=== PATIENT | male | born 1975 | race Caucasian/White ===

== ENCOUNTER → 2018-08-04 | Day surgery (SDC) | payer MEDICARE, MEDICAID ==
[~2018-08-04] MED LIST: ADASUVE10 MG PO; ALL DAY ALLERGY10 M3 PO; APAP650 PO; BOUDREAUXS10 GM TOP; CARBAMAZEPINE200 M5 PO; CHLORPROMAZINE100 MG PO; CHLORPROMAZINE50 M2 PO; COLACE100 MG PO; CONSTULOSE10 GM/152 PO; DULCOLAX5 MG PO; HYDROCORTISONE30 G9 TOP; IBU600 MG PO; IPRAT-ALBUT 0.5-3 ML INH; LINZESS145 MCG PO; MELATONIN3 MG PO; METFORMIN HCL500 MG PO; MILK OF MA400 MG/5 M PO; MIRALAX17 GM PO; MULTIPLE VITAM1 EAC2 PO; MUPIROCIN22 GM TOP; NEURONTIN 300300 M1 PO; NEXIUM40 MG PO; OMEGA-31000 M1 PO; RESTORIL7.5 MG PO; SENNA8.6 MG PO; SEROQUEL 50 MG50 MG PO; SEROQUEL XR 30300 M1 PO; SINGULAIR 10 MG10 M1 PO; VITAMIN D2000 UNIT PO
[2018-08-04 10:06] LABS: HEMATOCRIT 44.2 % (42.0-52.0); HEMOGLOBIN 14.6 gm/dL (14.0-18.0); MCH 28.6 pg (26.0-34.0); MCV 86.7 fL (80.0-100.0); MPV 10.2 fl. (7.2-11.1); RBC 5.1 mil/uL (4.50-6.00); RDW-CV 13.9 % (10.5-14.5)
[2018-08-04 10:14] LABS: CALCIUM 9.2 mg/dL (8.5-10.1); CREATININE 0.6 mg/dL (0.6-1.3); POTASSIUM 4.3 mmol/L (3.5-5.1)
[2018-08-04 10:18] LABS: ALBUMIN 4.1 g/dL (3.4-5.0); TOTAL BILIRUBIN 0.2 mg/dL (<0.1-1.0); TOTAL PROTEIN 7.9 g/dL (6.4-8.2)
== END | disposition home or self-care (01) ==
LOC: M.SUR 06:41
PROVIDERS: Internal Medicine Gastroenterology
DX: Z43.1 Encounter for attention to gastrostomy (principal); R13.19 Other dysphagia; I10 Essential (primary) hypertension; E11.9 Type 2 diabetes mellitus without complications; K21.9 Gastro-esophageal reflux disease without esophagitis; E78.5 Hyperlipidemia, unspecified; Z79.899 Other long term (current) drug therapy; Z87.820 Personal history of traumatic brain injury; Z98.890 Other specified postprocedural states